=== PATIENT | female | born 1950 | race Caucasian/White ===

== ENCOUNTER 2019-02-26 23:44 | Emergency (ER) | payer OTHER ==
[~2019-02-26] VITALS: Ht 162.6 cm; Wt 83.0 kg
[~2019-02-26 23:44] MED LIST: DOCU-144 PO; SENN-120 PO
[2019-02-26 23:58] VITALS: BP 125/93; PULSE 76; RESP 19; Ht 162.6 cm; Wt 83.0 kg
--- NOTE | 2019-02-27 01:57 | ERD ---
ER Documentation Chief Complaint Chief Complaint STATES SWALLOWED PARTIAL DENTURE 7DAYS AGO, UNABLE TO LACATED IT IN STOOL HPI Patient is a 69-year-old female with diabetes who presents after she swallowed a partial denture. She said that she had a partial denture with 3 teeth which she swallowed by accident 7 days ago. She called her primary doctor who told her to go to the emergency department. She has not seen the dentures come out in her bowel movements. She has had no shortness of breath. She has no pain. She denies fever. Upon review of old medical records this is the patient's first visit to the emergency department. ROS All systems reviewed and are negative except as per history of present illness. Medications Home Meds Active Scripts Sennosides* (Senna Lax*) 8.6 Mg Tablet, 1 TAB PO DAILY, #30 TAB Prov:KOKO PEREZ MD 02/27/19 Docusate Sodium* (Colace*) 100 Mg Capsule, 100 MG PO TID, #30 CAP Prov:KOKO PEREZ MD 02/27/19 Allergies Allergies: Coded Allergies: No Known Allergy (Unverified , 02/27/19) PMhx/Soc Medical and Surgical Hx: pt denies Medical Hx, pt denies Surgical Hx Hx Alcohol Use: No Hx Substance Use: No Hx Tobacco Use: No Smoking Status: Never smoker FmHx Family History: diabetes Physical Exam Vitals Vital Signs Date Temp Pulse Resp B/P (MAP) Pulse Ox O2 O2 Flow FiO2 Time Delivery Rate 02/26/19 97.4 76 19 125/93 98 23:58 (104) Physical Exam Const: No acute distress Head: Atraumatic Eyes: Normal Conjunctiva ENT: Normal External Ears, Nose and Mouth. Neck: Full range of motion. No meningismus. Resp: Clear to auscultation bilaterally Cardio: Regular rate and rhythm, no murmurs Abd: Soft, non tender, non distended. Normal bowel sounds Skin: No petechiae or rashes Back: No midline or flank tenderness Ext: No cyanosis, or edema Neur: Awake and alert Psych: Normal Mood and Affect Procedures/MDM Chest X-ray 1V Interpreted by me: Soft Tissue: No acute abnormalities Bones: No acute abnormalities Mediastinum/Cardiac Silhouette/Lungs: No acute abnormalities X-ray Abdomen 1V Interpreted by me: Free Air: None Bowel Gas: Nonspecific Soft Tissue: Foreign body seen in the right lower quadrant which appears to be within the cecum Patient is a 69-year-old female with diabetes who presents with a retained foreign body. The dentures have passed the diaphragm which is a good indication that this may pass on its own in the stool. The patient has no pain and no fevers and I doubt perforation at this time. We have discussed the plan and the patient and I agree that returning in 48 to 72 hours for repeat x-ray to confirm movement or passage is appropriate. She can return sooner for abdominal pain or fevers. The patient understands the plan and is okay for discharge at this t [facility]. Departure Diagnosis: Primary Impression: Retained foreign body Condition: Fair Patient Instructions: Swallowed Foreign Body (Adult) Referrals: JOSH TROTTER (PCP) Additional Instructions: Return to the ER in 48-72 hours for repeat abdominal xray if you have not had a bowel movement with the foreign body in it. Return for pain or fevers as well. KOKO PEREZ MD Feb 27, 2019 01:57
== END 2019-02-27 01:52 | disposition home or self-care (01) ==
LOC: FTE 23:44
DX: T18.4XXA Foreign body in colon, initial encounter (principal); E11.9 Type 2 diabetes mellitus without complications; X58.XXXA Exposure to other specified factors, initial encounter; Y92.9 Unspecified place or not applicable
CPT/HCPCS: 71045; 74018; Z7502